=== PATIENT | male | born 1970 | race Two or more races ===

== ENCOUNTER 2020-12-22 13:44 | Emergency (ER) | payer MEDICAID, OTHER ==
[~2020-12-22] VITALS: Ht 172.7 cm; Wt 68.0 kg
[2020-12-22 15:01] VITALS: BP 143/84
[2020-12-22] MEDS ORDERED: KETOROLAC TROMETH 60MG/2ML VIAL IM ONE (15:30)
== END 2020-12-22 17:11 | disposition home or self-care (01) ==
LOC: EDBD 13:44 → ER 13:44
DX: S16.1XXA Strain of muscle, fascia and tendon at neck level, initial encounter (principal); S39.012A Strain of muscle, fascia and tendon of lower back, initial encounter; V43.52XA Car driver injured in collision with other type car in traffic accident, initial encounter; Y93.89 Activity, other specified; Y99.8 Other external cause status; Y92.488 Other paved roadways as the place of occurrence of the external cause
CPT/HCPCS: 72040; 72100; 73562; 93005; 96372; 99284; J1885